=== PATIENT | male | born 1945 | race Two or more races ===

== ENCOUNTER 2017-08-02 10:44 | Inpatient (IN) | payer MEDICAID, OTHER ==
[~2017-08-02] VITALS: Ht 162.6 cm; Wt 83.3 kg
[~2017-08-02 10:44] MED LIST: HYDR-3240 PO; LISI5TAB7 PO; PANT40TA5 PO
[2017-08-02] MEDS ORDERED: PANTOPRAZOLE 80 MG in SODIUM CHLORIDE 0.9% 50 ML IVPB ONE (13:04)
[2017-08-02] MEDS ORDERED: SODIUM CHLORIDE 0.9% 1,000ML IVBOLUS ONE ×2 (13:30→14:00)
[2017-08-02] MEDS ORDERED: SODIUM CHLORIDE FLUSH 10ML SYR IVF ONE (13:30)
[2017-08-02 13:32] LABS: INTERNATIONAL NORMALIZED RATIO 0.96 (0.93-1.1)
[2017-08-02 13:36] LABS: MEAN CORPUSCULAR HEMOGLOBIN 32.8 pg (27.5-34.5); MEAN CORPUSCULAR HGB CONC 34.8 g/dL (33.2-36.2); MEAN CORPUSCULAR VOLUME 94.4 fL (81-97); MEAN PLATELET VOLUME 7.4 fL (7.4-10.4); PLATELET COUNT 229 x10^3/uL (130-400); RED BLOOD COUNT 2.07 x10^6/uL (4.38-5.82); RED CELL DISTRIBUTION WIDTH 12.6 % (9.4-14.8)
[2017-08-02 13:37] LABS: ALBUMIN 3.3 g/dL (3.4-5.0); ANION GAP 7 mmol/L (5-15); CHLORIDE 109 mmol/L (98-107); CREATININE 1.33 mg/dL (0.7-1.3); HEMOGRAM NOTE RECHECKED
[2017-08-02 13:41] LABS: ALANINE AMINOTRANSFERASE 21 U/L (12-78); ALKALINE PHOSPHATASE 47 U/L (45-117); BILIRUBIN,TOTAL 0.2 mg/dL (0.2-1.0); TOTAL PROTEIN 6.2 g/dL (6.4-8.2)
[2017-08-02 13:52] LABS: BASOPHILS # (AUTO) 0.06 x10^3/uL (0-0.1); BASOPHILS % (AUTO) 1 % (0-1); EOSINOPHILS # (AUTO) 0.05 x10^3/uL (0-0.4); EOSINOPHILS % (AUTO) 1 % (1-7); LYMPHOCYTES % (AUTO) 26 % (22-44); MONOCYTES % (AUTO) 8 % (2-9); NEUTROPHILS # (AUTO) 4.06 x10^3/uL (1.8-6.8); NEUTROPHILS % (AUTO) 65 % (42-75)
[2017-08-02 13:53] LABS: MD SCAN
[2017-08-02] MEDS: PANTOPRAZOLE 80 MG in SODIUM CHLORIDE 0.9% 100 ML IV SCH ×2 (14:27→20:37)
[2017-08-02] MEDS ORDERED: SODIUM CHLORIDE 0.9% 1,000 ML IV SCH (15:10)
[2017-08-02] MEDS ORDERED: hydrALAzine 20 MG/ML, 1ML IVPush PRN (15:30)
[2017-08-02] MEDS ORDERED: BISACODYL 10 MG SUPP PR PRN (15:30)
[2017-08-02] MEDS ORDERED: ONDANSETRON 2MG/ML, 2ML IVPush PRN (15:30)
[2017-08-02] MEDS ORDERED: ACETAMINOPHEN 325 MG TABLET PO PRN (15:30)
[2017-08-02] MEDS ORDERED: POLYETHYLENE GLYCOL 17 GM PACKET PO PRN (15:30)
[2017-08-02] MEDS ORDERED: DOCUSATE 100 MG CAPSULE PO PRN (15:30)
[2017-08-02 17:12] VITALS: BP 134/73
[2017-08-02 17:55] VITALS: BP 113/69
[2017-08-02 18:26] VITALS: BP 112/6
[2017-08-02 18:41] VITALS: BP 120/69
[2017-08-02 19:19] VITALS: BP 124/72
[2017-08-02 21:10] VITALS: BP 121/69
[2017-08-03] MEDS: PANTOPRAZOLE 80 MG in SODIUM CHLORIDE 0.9% 100 ML IV SCH ×2 (00:08→10:39)
[2017-08-03 01:28] VITALS: BP 125/67
[2017-08-03 07:01] LABS: ANION GAP 3 mmol/L (5-15); CALCIUM 7.9 mg/dL (8.5-10.1); CHLORIDE 116 mmol/L (98-107); CREATININE 0.89 mg/dL (0.7-1.3)
[2017-08-03 07:38] VITALS: BP 125/67
[2017-08-03] MEDS ORDERED: MIDAZOLAM 1 MG/ML, 5ML ONE (07:55)
[2017-08-03] MEDS ORDERED: FENTANYL PF 100 MCG/2ML ONE (07:55)
[2017-08-03] MEDS: SUCRALFATE 1 GM/10 ML UDC PO SCH ×3 (13:14→19:33)
[2017-08-03 13:31] VITALS: BP 129/72
[2017-08-03] MEDS: OMEPRAZOLE 20 MG CAPSULE.DR PO SCH (19:33)
[2017-08-03 20:37] VITALS: BP 137/79
[2017-08-04 00:48] VITALS: BP 131/63
[2017-08-04 05:34] LABS: BASOPHILS # (AUTO) 0.03 x10^3/uL (0-0.1); BASOPHILS % (AUTO) 1 % (0-1); EOSINOPHILS # (AUTO) 0.11 x10^3/uL (0-0.4); EOSINOPHILS % (AUTO) 2 % (1-7); LYMPHOCYTES # (AUTO) 1.71 x10^3/uL (1-3.4); LYMPHOCYTES % (AUTO) 31 % (22-44); MD NO; MEAN CORPUSCULAR HEMOGLOBIN 32.1 pg (27.5-34.5); MEAN CORPUSCULAR HGB CONC 34.1 g/dL (33.2-36.2); MEAN PLATELET VOLUME 7.3 fL (7.4-10.4); MONOCYTES # (AUTO) 0.48 x10^3/uL (0.2-0.8); MONOCYTES % (AUTO) 9 % (2-9); NEUTROPHILS # (AUTO) 3.19 x10^3/uL (1.8-6.8); NEUTROPHILS % (AUTO) 58 % (42-75); PLATELET COUNT 226 x10^3/uL (130-400); RED BLOOD COUNT 2.79 x10^6/uL (4.38-5.82)
[2017-08-04 07:51] VITALS: BP 116/65
[2017-08-04] MEDS ORDERED: SUCR1ORA5 PO (08:52)
[2017-08-04] MEDS ORDERED: OMEP-110 PO (08:52)
[2017-08-04] MEDS ORDERED: LISINOPRIL 5 MG TABLET PO SCH (09:00)
[2017-08-04] MEDS: SUCRALFATE 1 GM/10 ML UDC PO SCH ×2 (10:17→11:00)
[2017-08-04] MEDS: OMEPRAZOLE 20 MG CAPSULE.DR PO SCH (10:17)
== END 2017-08-04 11:57 | disposition home or self-care (01) | DRG 377 ==
LOC: OR 15:09 → ORIP 15:10 → OR 16:11 → 3NE 16:33 → DCLOUNGE 08-04 11:49
PROVIDERS: ADMIT Hospitalist; ATTEND Hospitalist
PROC: 30233N1 Transfusion of Nonautologous Red Blood Cells into Peripheral Vein, Percutaneous Approach (ICD-10-PCS; 2017-08-02)
PROC: 0W3P8ZZ Control Bleeding in Gastrointestinal Tract, Via Natural or Artificial Opening Endoscopic (ICD-10-PCS; 2017-08-03)
PROC: 0DB68ZX Excision of Stomach, Via Natural or Artificial Opening Endoscopic, Diagnostic (ICD-10-PCS; 2017-08-03)
PROC: 0DB38ZX Excision of Lower Esophagus, Via Natural or Artificial Opening Endoscopic, Diagnostic (ICD-10-PCS; principal; 2017-08-03 08:00)
DX: K26.4 Chronic or unspecified duodenal ulcer with hemorrhage (principal); N17.0 Acute kidney failure with tubular necrosis; I95.9 Hypotension, unspecified; E44.0 Moderate protein-calorie malnutrition; J44.9 Chronic obstructive pulmonary disease, unspecified; D62 Acute posthemorrhagic anemia; K25.4 Chronic or unspecified gastric ulcer with hemorrhage; I10 Essential (primary) hypertension; K20.9 Esophagitis, unspecified; M10.9 Gout, unspecified; Z79.899 Other long term (current) drug therapy; Z80.1 Family history of malignant neoplasm of trachea, bronchus and lung; Z87.11 Personal history of peptic ulcer disease; Z68.31 Body mass index [BMI] 31.0-31.9, adult
CPT/HCPCS: 36415; 36430; 80048; 80053; 85014; 85018; 85025; 85610; 86850; 86900; 86923; 88305; 96361; 96365; 96366; 99152; 99153; J2250; J3010; C9113; J7030; P9016